=== PATIENT | male | born 1965 | race Caucasian/White ===

== ENCOUNTER 2017-01-14 09:29 | Observation (INO) | payer BC ==
[~2017-01-14] VITALS: Ht 175.3 cm; Wt 90.4 kg
[~2017-01-14 09:29] MED LIST: ADVAIR 100/28 DISKUS IH; ADVAIR IH; ALBUTEROL0.09 MG/A1 IH; FLAGYL500 MG PO; LORTAB 2.5/5001 TAB PO; NASACORT OTC NS; ROXICODONE 55 MG/TAB PO
[2017-01-14 10:28] LABS: ADJUSTED CALCIUM 8.7 mg/dL (8.4-10.2); ALANINE AMINOTRANSFERASE 35 U/L (21-72); ALBUMIN 4.6 gm/dL (3.5-5.0); ALKALINE PHOSPHATASE 53 U/L (50-136); ANION GAP 11 mmol/L (7-16); BASO # 0.1 (0.0-0.2); BASO % 1.2 % (0.0-2.0); BILIRUBIN,TOTAL 0.5 mg/dL (0.0-1.0); BLOOD UREA NITROGEN 11 mg/dL (9-20); CALCIUM 9.2 mg/dL (8.4-10.2); CARBON DIOXIDE 25 mmol/L (22-30); CHLORIDE 107 mmol/L (98-107); CREATININE, serum 0.88 mg/dL (0.66-1.25); EOS # 0.3 (0.0-0.7); EOS % 4.7 % (0-4.0); GLUCOSE 85 mg/dL (74-106); GRAN # 3.6 (1.4-6.5); GRAN % 61.4 % (42.2-75.2); HEMATOCRIT 39.2 % (42.0-52.0); LYMPH # 1.4 (1.2-3.4); LYMPH % 23.9 % (20.0-51.0); MEAN CELL VOLUME 77 fl (80.0-100.0); MEAN CORPUSCULAR HEMOGLOBIN 24 pg (27.0-31.0); MEAN CORPUSCULAR HGB CONC 31 g/dl (33.0-37.0); MEAN PLATELET VOLUME 8.9 fl (7.4-10.4); MONO # 0.5 (0.1-0.6); MONO % 8.5 % (1.7-9.3); PLATELET COUNT 287 K/mm3 (130-400); POTASSIUM 4.1 mmol/L (3.4-5.0); SODIUM 142 mmol/L (137-145); WHITE BLOOD COUNT 5.9 K/mm3 (4.8-10.8)
[2017-01-14 10:29] LABS: C-REACTIVE PROTEIN < 0.5 mg/dL (0.0-0.9)
[2017-01-14 10:50] LABS: ERYTHROCYTE SEDIMENTATION RATE 7 mm/hr (0-15)
[2017-01-14 15:50] VITALS: BP 127/76; PULSE 57; TEMP 98.3
[2017-01-14 20:08] VITALS: BP 109/61; PULSE 57; TEMP 98
[2017-01-15] VITALS (18 sets, daily range): BP systolic 104–116; BP diastolic 62–77; PULSE 53–65; TEMP 97.8–98.4
[2017-01-15 07:12] LABS: BASO # 0.1 (0.0-0.2); BASO % 1.3 % (0.0-2.0); EOS # 0.4 (0.0-0.7); EOS % 7.5 % (0-4.0); GRAN # 2.7 (1.4-6.5); GRAN % 49.2 % (42.2-75.2); HEMATOCRIT 37.9 % (42.0-52.0); LYMPH # 1.7 (1.2-3.4); LYMPH % 31.6 % (20.0-51.0); MEAN CELL VOLUME 76 fl (80.0-100.0); MEAN CORPUSCULAR HEMOGLOBIN 24 pg (27.0-31.0); MEAN CORPUSCULAR HGB CONC 31 g/dl (33.0-37.0); MEAN PLATELET VOLUME 9.2 fl (7.4-10.4); MONO # 0.6 (0.1-0.6); MONO % 10.2 % (1.7-9.3); PLATELET COUNT 278 K/mm3 (130-400); RED BLOOD COUNT 4.99 M/mm3 (4.20-5.60); WHITE BLOOD COUNT 5.5 K/mm3 (4.8-10.8)
[2017-01-15 07:15] LABS: HEMOGLOBIN 11.9 g/dl (13.5-18.0)
[2017-01-15 07:23] LABS: CHOLESTEROL RISK RATIO 5.1
[2017-01-15] MEDS ORDERED: ASPIRIN E.C. 8181 MG PO (07:58)
[2017-01-15 18:06] LABS: INR 1.1 (0.8-3.0); PROTHROMBIN TIME 12.3 SECONDS (9.7-12.8)
[2017-01-16 01:49] VITALS: BP 114/67; PULSE 69; TEMP 98.3
[2017-01-16 04:43] VITALS: BP 110/78; PULSE 66; TEMP 97.9
[2017-01-16 08:43] VITALS: BP 125/76; PULSE 71; TEMP 98.5
[2017-01-16 11:40] VITALS: BP 126/75; PULSE 69; TEMP 99.3
[2017-01-16] MEDS ORDERED: FERROUS SU325 MG/TAB PO (12:59)
[2017-01-16] MEDS ORDERED: B-121000 MCG PO (13:00)
[2017-01-16 14:55] VITALS: BP 126/75; PULSE 69; TEMP 99.3
== END 2017-01-16 15:52 | disposition short-term general hospital (02) ==
LOC: COL.ER 09:29 → MEDICAL 14:06
PROVIDERS: Internal Medicine; Nurse Practitioner Family; Physician Assistant
DX: I63.9 Cerebral infarction, unspecified (principal); D50.9 Iron deficiency anemia, unspecified; J45.909 Unspecified asthma, uncomplicated; D21.9 Benign neoplasm of connective and other soft tissue, unspecified; I08.2 Rheumatic disorders of both aortic and tricuspid valves; G43.909 Migraine, unspecified, not intractable, without status migrainosus; Z87.891 Personal history of nicotine dependence; Z83.3 Family history of diabetes mellitus; Z82.49 Family history of ischemic heart disease and other diseases of the circulatory system
CPT/HCPCS: 99222-AI; 99232-AI; 99239; A9585; G0378; J1644; J1650; J2250; J3010

== ENCOUNTER → 2017-07-02 | Outpatient (CLI) | payer BC ==
[~2017-07-02] MED LIST changes: +ASPIRIN E.C. 8181 MG PO; +B-121000 MCG PO; +FERROUS SU325 MG/TAB PO
[2017-07-02 09:58] LABS: ALBUMIN 4.2 gm/dL (3.5-5.0); BILIRUBIN,TOTAL 0.3 mg/dL (0.0-1.0); CALCIUM 9.2 mg/dL (8.4-10.2); CREATININE, serum 0.94 mg/dL (0.66-1.25); TOTAL PROTEIN 8.3 gm/dL (6.4-8.2)
== END ==
LOC: COL.LAB 09:17
PROVIDERS: Family Medicine
DX: I10 Essential (primary) hypertension (principal)

== ENCOUNTER → 2017-09-18 | Outpatient (CLI) | payer BC ==
[2017-09-18 16:51] LABS: BASO # 0.1 (0.0-0.2); BASO % 1.1 % (0.0-2.0); EOS # 0.5 (0.0-0.7); EOS % 8.9 % (0-4.0); GRAN # 2.9 (1.4-6.5); GRAN % 51.7 % (42.2-75.2); HEMOGLOBIN 12.5 g/dl (13.5-18.0); LYMPH # 1.6 (1.2-3.4); LYMPH % 28.6 % (20.0-51.0); MEAN CELL VOLUME 76 fl (80.0-100.0); MEAN CORPUSCULAR HEMOGLOBIN 24 pg (27.0-31.0); MEAN CORPUSCULAR HGB CONC 31 g/dl (33.0-37.0); MEAN PLATELET VOLUME 8.8 fl (7.4-10.4); MONO # 0.5 (0.1-0.6); MONO % 9.5 % (1.7-9.3); PLATELET COUNT 288 K/mm3 (130-400); RED BLOOD COUNT 5.26 M/mm3 (4.20-5.60); REDCELL DISTRIBUTION WIDTH-CV 21.9 % (11.5-14.5); RETIC # 0.05 M/mm3 (0.02-0.16); RETIC % 0.9 % (0.5-3.52)
[2017-09-18 17:23] LABS: C-REACTIVE PROTEIN 0.5 mg/dL (0.0-0.9)
== END ==
LOC: COL.LAB 16:20
PROVIDERS: Internal Medicine Hematology & Oncology
DX: D50.8 Other iron deficiency anemias (principal)

== ENCOUNTER → 2018-01-29 | Outpatient (CLI) | payer BC, OTHER ==
[2018-01-29 16:41] LABS: BASO # 0.1 (0.0-0.2); BASO % 0.9 % (0.0-2.0); EOS # 0.7 (0.0-0.7); EOS % 10.6 % (0-4.0); GRAN # 3.4 (1.4-6.5); GRAN % 49.9 % (42.2-75.2); HEMATOCRIT 44.8 % (42.0-52.0); HEMOGLOBIN 14.8 g/dl (13.5-18.0); LYMPH # 1.9 (1.2-3.4); LYMPH % 28.4 % (20.0-51.0); MEAN CELL VOLUME 86 fl (80.0-100.0); MEAN CORPUSCULAR HEMOGLOBIN 28 pg (27.0-31.0); MEAN CORPUSCULAR HGB CONC 33 g/dl (33.0-37.0); MEAN PLATELET VOLUME 8.9 fl (7.4-10.4); MONO # 0.7 (0.1-0.6); MONO % 9.8 % (1.7-9.3); PLATELET COUNT 275 K/mm3 (130-400); RED BLOOD COUNT 5.24 M/mm3 (4.20-5.60); REDCELL DISTRIBUTION WIDTH-CV 13.3 % (11.5-14.5); RETIC # 0.06 M/mm3 (0.02-0.16); RETIC % 1.2 % (0.5-3.52)
== END ==
LOC: COL.LAB 16:14
PROVIDERS: Internal Medicine Hematology & Oncology
DX: D50.8 Other iron deficiency anemias (principal); D64.9 Anemia, unspecified